=== PATIENT | male | born 1965 | race Caucasian/White ===

== ENCOUNTER 2024-01-22 05:58 | Inpatient (IN) | payer OTHER, SELFPAY ==
[2024-01-22] VITALS (16 sets, daily range): BP systolic 102–164; BP diastolic 54–100; PULSE 57–78; RESP 12–20; TEMP 36–36.6; O2SAT 96–100; BMI 31.3
--- NOTE | 2024-01-22 | ECG_ITS ---
SEE SCANNED COPY FOR CONFIRMED REPORT MTDD
--- NOTE | ~2024-01-22 | XR_ITS ---
XR chest 2V DATE: 01/22/2024 06:24 INDICATION: Midline chest pain TECHNIQUE: PA and lateral chest COMPARISON: None FINDINGS: Normal heart size. No hilar or mediastinal enlargement. No pulmonary infiltrate or consolidation, pleural effusion or pulmonary vascular congestion or pneumo thorax. IMPRESSION: No active cardiopulmonary disease Reviewed, dictated and finalized at location A.
--- NOTE | 2024-01-22 06:18 | PC.NURSE ---
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
[2024-01-22 06:21] LABS: Basophils Percent Auto 0.5 % (0.2-1.2); Eosinophils Absolute Auto 0.2 K/mm3 (0-0.3); Eosinophils Percent Auto 3.2 % (0-4.4); Hematocrit 45.1 % (42.0-52.0); Hemoglobin 15.5 g/dL (14.0-18.0); Immature Granulocyte Absolute 0.03 K/mm3 (0.00-0.031); Immature Granulocyte Percent A 0.4 % (0-0.5); Lymphocytes Percent Auto 30.2 % (18.3-44.2); Mean Corpuscular HGB Conc 34.4 g/dl (32-36); Mean Corpuscular Hemoglobin 28.9 pg (26-34); Mean Corpuscular Volume 84.1 fl (80-100); Mean Platelet Volume 9.2 fl (7.4-10.4); Monocytes Absolute Auto 0.7 K/mm3 (0.1-0.6); Monocytes Percent Auto 9.5 % (2.6-8.5); Neutrophils Absolute Auto 4.1 K/mm3 (1.3-6.7); Neutrophils Percent Auto 56.2 % (45.5-73.1); Platelet Count Result 209 k/mm3 (150-375); Red Blood Count 5.36 M/mm3 (4.6-6.20); Red Cell Distribution Width 13.4 % (11.5-14.5); White Blood Count 7.3 K/mm3 (4.5-10.0)
[2024-01-22 06:33] LABS: Alanine Aminotransferase 33 U/L (6-50); Albumin Level 4.4 g/dL (3.5-5.1); Alkaline Phosphatase 66 U/L (38-126); Anion Gap 5 mmol/L (4-12); Aspartate Amino Transferase 32 U/L (17-59); Bilirubin,Total 0.6 mg/dL (0.2-1.3); Blood Urea Nitrogen 20 mg/dL (9-20); Calcium 9.7 mg/dL (8.4-10.2); Carbon Dioxide 28 mmol/L (22-30); Chloride 106 mmol/L (98-107); Estimated CRCL calculation 91 ml/min; Estimated Glomerular Filt Rate > 60; Glucose 116 mg/dL (65-110); Lipase 125 U/L (23-300); Potassium 4.4 mmol/L (3.4-5.0); Sodium 139 mmol/L (137-145)
[2024-01-22 06:43] LABS: Troponin I < 0.012 ng/mL (0.000-0.034)
[2024-01-22 06:53] LABS: INR 0.9; Prothrombin Time 12.8 Seconds (11.1-14.7)
[2024-01-22 06:54] LABS: Partial Thromboplastin Time 26.4 Seconds (22.3-36.8)
--- NOTE | 2024-01-22 07:09 | PC.NURSE ---
Bedside report to ARMANDO Baugh. Pt resting quietly per cart in nad. Updated pt on plan of care.
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
--- NOTE | 2024-01-22 09:03 | ECG_ITS ---
SEE SCANNED COPY FOR CONFIRMED REPORT MTDD
[2024-01-22] MEDS: HEPARIN SODIUM 5,000 UNITS/ML VIAL 4000 UNITS IV PUSH ×2 (10:43→17:58)
[2024-01-22] MEDS: HEPARIN SOD/D5W 100 UNITS/ML 25,000 UNITS/250 ML BAG 10 UNITS IV CONT (10:44)
[2024-01-22 11:18] LABS: D Dimer 0.31 ug/mL (<0.48)
--- NOTE | 2024-01-22 12:30 | ECG_ITS ---
SEE SCANNED COPY FOR CONFIRMED REPORT MTDD
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
--- NOTE | 2024-01-22 14:39 | PM.CNCAR ---
Assessment and Plan Assessment and plan (1) Non-ST elevation myocardial infarction (NSTEMI): Code(s): I21.4 - Non-ST elevation (NSTEMI) myocardial infarction Status: Acute Assessment and Plan: Patient presents with unstable anginal symptoms currently resolved after nitroglycerin. Troponin elevation without acute ECG ischemic changes noted consistent with NSTEMI. Patient has known underlying CAD with small branch disease managed medically from [facility] from 2009 at [facility]. Stress test 2019 exercise 11 minutes no ischemia but fixed defect anteroseptal wall. At that time he was advised to stop aspirin continue clopidogrel 75 mg daily. Continue atorvastatin 40 mg at bedtime. -Patient is currently completely asymptomatic. He is hemodynamically stable and without acute ischemia ECG changes or ST elevations. He is not decompensated heart failure. Continue telemetry to monitor for ventricular arrhythmias. Very lengthy discussion with the patient his and son at bedside with regards to standard of care, medical management and plan for coronary angiography. Continue heparin infusion, aspirin 81 mg daily, clopidogrel 75 mg daily and statin therapy as above. Continue telemetry. Counseled should he have recurrent significant and or refractory symptoms recommendation to proceed to coronary angiography urgently would be advised. Provided he remains stable and asymptomatic will continue to medically manage him with plan for coronary angiography as discussed. Patient verbalized understanding and agreed with plan of care. All questions answered to their satisfaction. Dr. Harrell intervention Cardiology informed of patient's admission and current clinical status. 2D echocardiogram to assess LV function, wall motion abnormalities, valve pathology pulmonary pressures. -Continue nitroglycerin paste. (2) Coronary artery disease: Code(s): I25.10 - Atherosclerotic heart disease of [place] coronary artery without angina pectoris Status: Acute Assessment and Plan: As above, history of non small vessel branch disease as reported on [facility] 2009. Stress test with fixed infarct no ischemia exercised 11 minutes of [place] protocol 2019. History of tobacco abuse smoke free now for least 3 years. Continue antiplatelet therapy, atorvastatin. He is not currently on AV anthony blocking agents. Continue recreation aide. If LV dysfunction and beta-asya therapy for further management as heart rate and blood pressure permit. (3) Mixed hyperlipidemia: Code(s): E78.2 - Mixed hyperlipidemia Status: Acute Assessment and Plan: Continue atorvastatin 40 mg at bedtime. Check lipid panel. (4) History of tobacco abuse: Code(s): Z87.891 - Personal history of nicotine dependence Status: Acute Assessment and Plan: Remains smoke-free. History of Present Illness History of Present Illness Consult date/time: Date of service: 01/22/24 14:39 Requesting physician: Navya Macdonald PA-C Consult reason: Other (NSTEMI) Reason For Visit: NSTEMI Narrative: Patient is a very pleasant 58-year-old male with a past medical history seen for CAD with [facility] 2010 with CAD with recommendation for medical management, history of tobacco abuse, family history premature atherosclerosis, hyperlipidemia, SHERRILL on CPAP followed by Dr. Harrell last seen by him in the office 07/12/2023 but he was feeling well. Patient reports he was in his usual state of health until approximately 1 week or so ago when he began to feel more fatigued, running of energy more quickly this and mild or vague discomfort and some shortness of breath. This resolved quickly had a couple of other episodes earlier this week with mild exertional angina described as a pressure-like sensation. He states went to sleep last night no issues awoke approximately 330 in the morning with significant chest pressure/heaviness which would not resolve feeling clammy a
[2024-01-22 17:05] LABS: INR 1.1; Prothrombin Time 14.7 Seconds (11.1-14.7)
[2024-01-22 17:07] LABS: Partial Thromboplastin Time 53.4 Seconds (22.3-36.8)
[2024-01-22] MEDS: NITROGLYCERIN OINTMENT 1 INCH DOSE TRANSDERM (19:37)
[2024-01-23] VITALS (19 sets, daily range): BP systolic 100–121; BP diastolic 52–76; PULSE 57–99; RESP 12–20; TEMP 36.3–36.9; O2SAT 95–98
[2024-01-23] MEDS: NITROGLYCERIN OINTMENT 1 INCH DOSE TRANSDERM ×2 (00:10→06:17)
[2024-01-23 01:36] LABS: Partial Thromboplastin Time 131.7 Seconds (22.3-36.8)
[2024-01-23 04:54] LABS: Basophils Absolute Auto 0.1 K/mm3 (0.0-0.1); Basophils Percent Auto 0.9 % (0.2-1.2); Eosinophils Absolute Auto 0.3 K/mm3 (0-0.3); Eosinophils Percent Auto 3.2 % (0-4.4); Hematocrit 43.7 % (42.0-52.0); Hemoglobin 15.1 g/dL (14.0-18.0); Immature Granulocyte Absolute 0.03 K/mm3 (0.00-0.031); Immature Granulocyte Percent A 0.4 % (0-0.5); Lymphocytes Absolute Auto 2.61 K/mm3 (0.9-3.2); Mean Corpuscular HGB Conc 34.6 g/dl (32-36); Mean Corpuscular Hemoglobin 28.5 pg (26-34); Mean Corpuscular Volume 82.5 fl (80-100); Mean Platelet Volume 9.3 fl (7.4-10.4); Monocytes Absolute Auto 0.6 K/mm3 (0.1-0.6); Monocytes Percent Auto 7.5 % (2.6-8.5); Neutrophils Absolute Auto 4.6 K/mm3 (1.3-6.7); Platelet Count Result 218 k/mm3 (150-375); Red Cell Distribution Width 13.4 % (11.5-14.5); White Blood Count 8.2 K/mm3 (4.5-10.0)
[2024-01-23 05:06] LABS: Cholesterol 163 mg/dL (0-200); HDL Direct 36 mg/dL; Triglycerides 242 mg/dL (<150)
[2024-01-23 05:17] LABS: LDL Cholesterol Direct 90 mg/dL
[2024-01-23] MEDS: ACETAMINOPHEN 325 MG TABLET 650 MG PO (06:17)
--- NOTE | 2024-01-23 08:00 | ECG_ITS ---
SEE SCANNED COPY FOR CONFIRMED REPORT MTDD
--- NOTE | 2024-01-23 08:43 | PM.PNCARD ---
Progress Note: A&P Assessment and Plan (1) Non-ST elevation myocardial infarction (NSTEMI): Code(s): I21.4 - Non-ST elevation (NSTEMI) myocardial infarction Status: Acute Assessment and Plan: Patient presents with unstable anginal symptoms currently resolved after nitroglycerin. Troponin elevation without acute ECG ischemic changes noted consistent with NSTEMI. Patient has known underlying CAD with small branch disease managed medically from [facility] from 2009 at [facility]. Stress test 2019 exercise 11 minutes no ischemia but fixed defect anteroseptal wall. At that time he was advised to stop aspirin continue clopidogrel 75 mg daily. Continue atorvastatin 40 mg at bedtime. -Patient is currently completely asymptomatic. He is hemodynamically stable and without acute ischemia ECG changes or ST elevations. He is not decompensated heart failure. Continue telemetry to monitor for ventricular arrhythmias. Very lengthy discussion with the patient his and son at bedside with regards to standard of care, medical management and plan for coronary angiography. Continue heparin infusion, aspirin 81 mg daily, clopidogrel 75 mg daily and statin therapy as above. Plan for coronary angiography discussed case with Dr. Harrell who states he may be able to proceed with coronary angiography today. Recommendation to follow thereafter. (2) Coronary artery disease: Code(s): I25.10 - Atherosclerotic heart disease of [place] coronary artery without angina pectoris Status: Acute Assessment and Plan: As above, history of non small vessel branch disease as reported on [facility] 2009. Stress test with fixed infarct no ischemia exercised 11 minutes of [place] protocol 2019. History of tobacco abuse smoke free now for least 3 years. Continue antiplatelet therapy, atorvastatin. He is not currently on AV anthony blocking agents. Continue warehouse shipping clerk. If LV dysfunction and beta-asya therapy for further management as heart rate and blood pressure permit. (3) Mixed hyperlipidemia: Code(s): E78.2 - Mixed hyperlipidemia Status: Acute Assessment and Plan: Continue atorvastatin. LDL 90, suboptimal control, increase atorvastatin to 80 mg at bedtime. (4) History of tobacco abuse: Code(s): Z87.891 - Personal history of nicotine dependence Status: Acute Assessment and Plan: Remains smoke-free. Subjective Date/time seen: Date of service: 01/23/24 08:43 Interval history: Follow-up for NSTEMI, CAD Feeling well, no new issues overnight. Patient denies any chest pain at all. and daughter at bedside. Very lengthy discussion held with him with regards to clinical status, plan of care. No shortness of breath, nausea, palpitations, dizziness. Patient is restless in the hospital. Review of Systems Review of Systems: Remainder of the review of systems is otherwise negative aside from that noted in the HPI. All systems reviewed & are unremarkable except as noted in HPI and below Constitutional: Constitutional: Reports as per HPI and Reports no additional constitutional complaints Eyes: Eyes: Reports as per HPI and Reports no additional eye complaints ENT: Reports system reviewed and no additional complaints, except as documented and Reports as per HPI Cardiovascular: Cardiovascular: Reports as per HPI and Reports no additional cardiovascular complaints Respiratory: Respiratory: Reports as per HPI and Reports no additional respiratory complaints Gastrointestinal: Gastrointestinal: Reports as per HPI and Reports no additional gastrointestinal complaints Genitourinary: Genitourinary: Reports no additional male genitourinary complaints and Reports as per HPI Musculoskeletal: Musculoskeletal: Reports no additional musculoskeletal complaints and Reports as per HPI Integumentary/Breasts: Skin/Breast: Reports system reviewed and no additional complaints, except as docu and Report
[2024-01-23] MEDS: HEPARIN SOD/D5W 100 UNITS/ML 25,000 UNITS/250 ML BAG 11 UNITS IV CONT (09:00)
[2024-01-23] MEDS: CLOPIDOGREL BISULFATE 75 MG TABLET PO (09:03)
[2024-01-23] MEDS: ASPIRIN 81 MG ENTERIC TABLET PO (09:03)
[2024-01-23] MEDS: ATORVASTATIN 40 MG TABLET PO (09:03)
--- NOTE | 2024-01-23 10:47 | PM.IMPN ---
Progress Note: A&P Assessment and Plan (1) Non-ST elevation myocardial infarction (NSTEMI): Code(s): I21.4 - Non-ST elevation (NSTEMI) myocardial infarction Status: Acute (2) Coronary artery disease: Code(s): I25.10 - Atherosclerotic heart disease of [place] coronary artery without angina pectoris Status: Acute Plan The patient presented to the emergency department for evaluation of chest pain as detailed in HPI. Labs, imaging, EKG, and all reports were personally reviewed. He began having anginal symptoms 1 week ago and today he was awakened from sleep with mid chest tightness, improved with sublingual nitro. Initial troponin was within normal limits however his 3 hour and 6 hour troponins have trended upwards to 7.280. He took aspirin 324 mg prior to coming to the emergency department. He has been started on a heparin drip and transdermal nitroglycerin. Cardiology has been consulted with recommendations to continue statin and antiplatelet therapy with plans for cardiac catheterization on Wednesday. Findings and treatment plan were discussed with the patient and his . Questions were solicited and answered to satisfaction. The patient's medical management will be taken over by the hospitalist team in a.m. 01/22: no chest pain address change clerk recommends to?stop aspirin continue clopidogrel 75 mg daily.? Continue atorvastatin 40 mg at bedtime, received heparin drip, cardiac catheterization today ?cardiac catheterization revealed significant LAD, major diagonal branch and significant RCA disease.? address change clerk will transfer patient to [facility] for CABG.? continue aspirin, hold Plavix in anticipation for CABG.? Resume heparin 3 hours after cardiac catheterization per address change clerk Subjective Date/time seen: 01/23/24 10:47 Interval history: patient underwent cardiac catheterization today, no complications. patient denies chest pain, shortness breast, abdomen pain, nausea vomiting. Cardiac catheterization revealed multivessel disease Exam Narrative: General: Well-developed, nontoxic-appearing gentleman in the semi-Khanna position in bed in no acute distress. Weight: 99 kg. BMI: 31.3. HEENT: PERRL, EOMI. Sclera anicteric. Oral mucosa moist. Oropharynx clear. Neck: Supple. Respiratory: Lungs are clear to auscultation bilaterally. Cardiovascular: Regular rate and rhythm with S1-S2. Gastrointestinal: Abdomen is soft, nontender, and nondistended with positive bowel sounds. Skin: Warm and dry. No rash or lesions on limited exam. no bleeding and needle inserting site Extremities: No cyanosis, clubbing, or edema. Radial and pedal pulses intact. Neurological: Alert. Cranial nerves 2-12 are grossly intact. No gross focal deficits to casual conversation. Psychiatric: Pleasant and cooperative with normal mood and affect. Judgment and insight intact. Objective Data Vital Signs Vital Signs: Vital Signs - 24 hr 01/22/24 10:50 01/22/24 11:39 01/22/24 11:55 Temperature 97.8 F Pulse Rate 62 61 Respiratory Rate 12 14 Blood Pressure 113/69 126/80 Pulse Oximetry 98 100 99 Oxygen Delivery Room Air 01/22/24 13:09 01/22/24 13:30 01/22/24 15:46 Temperature 96.8 F L 97.3 F L Pulse Rate 66 64 66 Respiratory Rate 17 20 20 Blood Pressure 131/79 129/75 102/54 L Pulse Oximetry 98 99 97 Oxygen Delivery 01/22/24 14:00 01/22/24 13:30 01/22/24 18:00 Temperature Pulse Rate 66 64 64 Respiratory Rate Blood Pressure Pulse Oximetry Oxygen Delivery 01/22/24 19:56 01/22/24 20:00 01/22/24 20:00 Temperature 97.3 F L Pulse Rate 60 60 Respiratory Rate 12 Blood Pressure 116/62 Pulse Oximetry 96 Oxygen Delivery Room Air 01/22/24 22:00 01/23/24 00:00 01/23/24 00:00 Temperature 97.4 F L Pulse Rate 57 L 63 Respiratory Rate 12 Blood Pressure 111/59 L Pulse Oximetry 98 Oxygen Delivery Room Air 01/23/24 00:00 01/23/24 02:00 01/23/24 04:
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
--- NOTE | 2024-01-23 11:14 | P.PCNCC_ITS ---
Cardiac Cath Procedure Note Date of procedure:: 01/23/24 Performing physician:: Panda Harrell MD Indication:: chest pain Brief clinical history:: 58 years old patient history of tobacco use presents for chest pain was found to have elevated troponins. Troponins went up to 7 now trending. Procedure Procedure performed:: 1-Moderate sedation that started at 1116am and ended at 1144am With total duration 28 minutes using 2mg of Versed and 25mcg fentanyl. The registered nurse melvin coronado 2-Selective left and right coronary angiogram. 3-Left heart catheterization with measurement of LVEDP and measurement of gradient across aortic valve. 4-LV angiogram 4-Right common femoral arterial angiogram. 5-Deployment of 6 Angolan Angio-Seal. Sedation/Medication given:: Moderate sedation. Access site:: Right common femoral artery. Estimated blood loss:: 10cc Procedure note:: After informed consent patient was brought in to medical lab tech instructor with the was draped and prepped in usual manner. Moderate sedation was given and the right groin was infiltrated using 1% lidocaine. Five Angolan sheath was obtained using micropuncture needle and the modified Seldinger technique. Selective left coronary angiogram was done using JL4 catheter with the tip of the catheter placed in the left main coronary artery. Selective right coronary angiogram was done using JR4 catheter with the tip of the catheter placed to the right coronary artery. After that 5 Angolan pigtail catheter was advanced across the aortic valve into the left ventricle with measurement of LVEDP and measurement of gradient across aortic valve. LV angiogram Right common femoral arterial angiogram was done. Findings:: 1- left coronary artery is a large artery that divides into large LAD, large circumflex artery. Left main is has minimal irregularities. 2- left anterior descending artery is a large artery that runs and wraps around the apex. Proximal LAD has multiple areas of aneurysms and narrowings that constitute around 70%. There is a major diagonal branch that has significant 90% disease in couple areas. 3- leftcircumflex artery is a large artery . In the mid segment 50%. 4- right coronary artery is Very large artery and mid to distal segment there is 90% lesions. Two sequential lesions. 5- LVEDP was 16 mm Hg and no gradient across aortic valve. LV angiogram shows normal ejection fraction 65% with no wall motion abnormalities. 6- opening arterial pressure was 99/73 and closing pressure was 100/70 7- right femoral artery angiogram shows no significant disease in the right common femoral artery. Assessment and Plan Assessment and plan (1) Non-ST elevation OR (NSTEMI): Code(s): I21.4 - Non-ST elevation (NSTEMI) myocardial infarction Status: Acute Plan - patient underwent cardiac catheterization that shows significant LAD, major diagonal branch and significant RCA disease. This will be better addressed by CABG. Will continue aspirin. Recommend to hold Plavix in anticipation for CABG. Resume heparin 3 hours after cardiac catheterization. We will discuss with CT surgery at [facility] and arrange for the transfer.
--- NOTE | 2024-01-23 11:14 | WPDHPUPDATE1 ---
History and Physical Update Update Date/Time: 01/23/24 11:14 History and Physical has been reviewed, including an updated exam of the patient. There are NO changes in the patient's condition. Risks, benefits, and alternatives have been discussed and questions answered. Patient agrees to proceed with procedure.
--- NOTE | 2024-01-23 12:25 | PC.NURSE ---
Patient recovering from Angiogram in ICU 6 x 1 hour. Bedside report received from Rahel Lockett. Right groin site soft, dressing dry and intact. Right pedal pulse palpable.
--- NOTE | 2024-01-23 13:48 | PC.NURSE ---
Patient transferred back to room 200 via bed without issue.Report given to ARMANDO Trimble.
[2024-01-23] MEDS: SODIUM CHLORIDE 0.9% IV 1,000 ML 125 ML IV CONT (14:56)
--- NOTE | 2024-01-23 16:30 | PM.TDS ---
Transfer Discharge Sum: Prov Provider Date of admission: 01/22/24 11:46 Primary care physician: Joseph Skelton, PA-C Admitting clinician: Annalee Acosta MD Consults: 01/22/24 Consult to Physician Routine Comment: Consulting Provider: Abdirashid Spence Reason for consultation: NSTEMI Has provider been notified: Yes DS: Admitting Diagnosis Discharge Date 01/23/24 Admitting Diagnosis non-STEMI DS: Discharge Diagnosis Discharge Diagnosis (1) Non-ST elevation myocardial infarction (NSTEMI): Code(s): I21.4 - Non-ST elevation (NSTEMI) myocardial infarction Status: Acute (2) Coronary artery disease: Code(s): I25.10 - Atherosclerotic heart disease of [place] coronary artery without angina pectoris Status: Acute Transfer Discharge Sum: Med Medications Active and Home Medications: Home Medications atorvastatin 40 mg tablet 40 mg PO DAILY 01/22/24 [History Confirmed 01/22/24] Active Medications Acetaminophen (Acetaminophen 325 Mg Tablet) 650 mg PO Q6H PRN PRN Reason: Mild Pain (1-3) or Fever Last Admin: 01/23/24 06:17 Dose: 650 mg Aspirin (Aspirin 81 Mg Enteric Tablet) 81 mg PO QAM [facility] Last Admin: 01/23/24 09:03 Dose: 81 mg Atorvastatin Calcium (Atorvastatin 40 Mg Tablet) 80 mg PO DAILY [facility] Heparin Sodium (Porcine) (Heparin Sodium 5,000 Units/Ml Vial) 4,000 units IV PUSH PRN PRN PRN Reason: aPTT less than 55 seconds Last Admin: 01/22/24 17:58 Dose: 4,000 units Heparin Sodium (Porcine) (Heparin Sodium 5,000 Units/Ml Vial) 3,500 units IV PUSH PRN PRN PRN Reason: aPTT 55 - 70 seconds Heparin Sodium/Dextrose (Heparin Sodium/D5w 100 Units/Ml) 25,000 units in 250 mls @ 11 mls/hr IV CONT .[id number] [facility]; Protocol Last Titration: 01/23/24 15:40 Dose: 1,100 units/hr, 11 mls/hr Sodium Chloride (Normal Saline Iv) 1,000 mls @ 125 mls/hr IV CONT .Q8H ONE Stop: 01/23/24 20:10 Last Admin: 01/23/24 14:56 Dose: 125 mls/hr Perflutren Lipid Microsphere (Perflutren Lipid Microspheres 1.5 Ml Vial Diluted To 10 Ml Total Volume) 0 ml IV PUSH ONCE PRN; Protocol PRN Reason: adequate visualization Stop: 01/25/24 15:00 Transfer Discharge Sum: Hosp Hospital Course Hospital course: Jose Agustin is a 58 year old male present ED with a chief complaint of chest pain He began having anginal symptoms 1 week ago and today he was awakened from sleep with mid chest tightness, improved with sublingual nitro. Initial troponin was within normal limits however his 3 hour and 6 hour troponins have trended upwards to 7.280. He took aspirin 324 mg prior to coming to the emergency department. He has been started on a heparin drip and transdermal nitroglycerin. Cardiology has been consulted with recommendations to continue statin and antiplatelet therapy with plans for cardiac catheterization on Wednesday. Findings and treatment plan were discussed with the patient and his . Questions were solicited and answered to satisfaction. The patient's medical management will be taken over by the hospitalist team in a.m. 01/22: no chest pain trucksmith recommends to?stop aspirin continue clopidogrel 75 mg daily.? Continue atorvastatin 40 mg at bedtime, received heparin drip, cardiac catheterization today ?cardiac catheterization revealed significant LAD, major diagonal branch and significant RCA disease.? trucksmith will transfer patient to [facility] for CABG.? continue aspirin, hold Plavix in anticipation for CABG.? Resume heparin 3 hours after cardiac catheterization per trucksmith Time Spent with Patient Time attestation: Total time spent providing and/or coordinating transfer services: Exam Narrative: General: Well-developed, nontoxic-appearing gentleman in the semi-Khanna position in bed in no acute distress. Weight: 99 kg. BMI: 31.3. HEENT: PERRL, EOMI. Sclera anicteric. Oral mucosa moist. Oropharynx clear. Neck: Supple. Respiratory: Lungs are clear t
== END 2024-01-23 17:50 | disposition short-term general hospital (02) | DRG 282 ==
LOC: ANHED 10:49 → ANHIMU 12:04
PROVIDERS: Emergency Medicine; Internal Medicine; Internal Medicine Cardiovascular Disease; Physician Assistant; Admitting Provider Hospitalist; Emergency Provider Emergency Medicine; PCP Physician Assistant; Visit Provider Hospitalist
PROC: 4A023N7 Measurement of Cardiac Sampling and Pressure, Left Heart, Percutaneous Approach (ICD-10-PCS; CPT 93452; principal; 2024-01-23 11:00)
PROC: 4A023N7 Measurement of Cardiac Sampling and Pressure, Left Heart, Percutaneous Approach (ICD-10-PCS; 2024-01-23 11:00)
DX: I21.4 Non-ST elevation (NSTEMI) myocardial infarction (principal); I25.10 Atherosclerotic heart disease of native coronary artery without angina pectoris; E78.2 Mixed hyperlipidemia; G47.33 Obstructive sleep apnea (adult) (pediatric); I25.2 Old myocardial infarction; Z90.49 Acquired absence of other specified parts of digestive tract; Z87.891 Personal history of nicotine dependence
CPT/HCPCS: 36415; 71046; 80053; 80061; 83690; 84484; 85025; 85380; 85610; 85730; 93005; 93458; 96374; 99291; A9270; C1760; C1887; C1894; G0269; J1644; J2250; J3010; J7030; J7040

== ENCOUNTER 2024-04-05 07:15 | Outpatient (RCR) | payer OTHER, SELFPAY | END 2024-04-19 08:01 | disposition home or self-care (01) | LOC: ANHCPREHAB 07:15 | PROVIDERS: PCP Physician Assistant; Visit Provider Internal Medicine Cardiovascular Disease | DX: Z95.1 Presence of aortocoronary bypass graft (principal) | CPT/HCPCS: 93798 ==